=== PATIENT | male | born 1960 | race African-American/Black ===

== ENCOUNTER 2018-11-17 09:12 | Emergency (ER) | payer MEDICAID ==
[~2018-11-17] VITALS: Ht 175.3 cm; Wt 99.0 kg
[2018-11-17 09:59] VITALS: BP 142/86
== END 2018-11-17 10:44 | disposition left against medical advice (07) ==
LOC: ER 09:12
DX: R05 Cough (principal); R06.02 Shortness of breath; Z53.21 Procedure and treatment not carried out due to patient leaving prior to being seen by health care provider

== ENCOUNTER 2022-11-23 16:20 | Emergency (ER) | payer MEDICAID, OTHER ==
[~2022-11-23] VITALS: Ht 175.3 cm; Wt 100.0 kg
[2022-11-23] MEDS ORDERED: BACITRACIN ZINC OINT UDPKT TOP ONE (18:15)
[2022-11-23] MEDS ORDERED: LIDOCAINE HCL/PF 1% 10 MG/ML 5ML VIAL INFIL ONE (18:15)
[2022-11-23] MEDS ORDERED: ACETAMINOPHEN 325MG TABLET PO ONE (18:15)
[2022-11-23] MEDS ORDERED: IBUP-2028 MT (19:04)
[2022-11-23 19:24] VITALS: BP 128/87
== END 2022-11-23 19:25 | disposition home or self-care (01) ==
LOC: ER 16:20
DX: S61.211A Laceration without foreign body of left index finger without damage to nail, initial encounter (principal); W34.00XA Accidental discharge from unspecified firearms or gun, initial encounter; Y93.89 Activity, other specified; Y92.89 Other specified places as the place of occurrence of the external cause; Y99.8 Other external cause status
CPT/HCPCS: 12001; 99282; J3490